=== PATIENT | male | born 1990 | race American Indian/Alaskan Native ===

== ENCOUNTER 2016-11-21 03:01 | Emergency (ER) | payer OTHER ==
--- NOTE | 2016-11-21 08:24 | Emergency Department Report ---
Chief Complaint: Urogenital-Male Stated Complaint: PENILE DISCHARGE Time Seen by Provider: 11/21/16 08:14 - HPI History of Present Illness: 26-year-old male presents today with burning upon urination and white discharge 1 day. Patient states that he had unprotected sex but these occurred once to be tested. Positive for history of gonorrhea and chlamydia and was treated at that time. Denies fever, chills, nausea, vomiting, chest pain, shortness of breath, abdominal Pain, back pain, blood in urine, increased urinary frequency or urgency. - ROS Review of Systems: Per HPI - Exam Vital Signs: Vital Signs 11/21/16 03:25 Temperature 98.4 F Pulse Rate 64 Respiratory 20 Rate Blood Pressure 155/103 O2 Sat by Pulse 100 Oximetry Physical Exam: GENERAL: The patient is well-developed and well-nourished. Patient is in NAD. HEAD: Normocephalic. Atraumatic. CHEST/LUNGS: Clear to auscultation throughout. HEART/CARDIOVASCULAR: Regular rate and rhythm. No murmurs, rubs or gallops. ABDOMEN: Abdomen is soft, nontender. Bowel sounds normoactive. No guarding or rebound tenderness. Negative for CVA tenderness bilaterally. EXTREMITIES: Peripheral pulses intact. Capillary refill less than 2 seconds. NEURO: Alert and oriented x 3. Normal gait. MSE screening note: Focused history and physical exam performed. Due to findings the following was ordered: ED Disposition for MSE Disposition: MEDICAL SCREENING EXAM-LEFT Condition: Stable Referrals: PRIMARY CARE, [Primary Care Provider] - 3-5 Days
[2016-11-21 08:39] VITALS: BP 145/91
--- NOTE | 2016-11-21 08:57 | Emergency Department Report ---
HPI - General Chief Complaint: Urogenital-Male Time Seen by Provider: 11/21/16 08:14 - HPI HPI: 26-year-old male presents today with burning upon urination and white discharge 1 day. Patient states that he had unprotected sex but these occurred once to be tested. Positive for history of gonorrhea and chlamydia and was treated at that time. Denies fever, chills, nausea, vomiting, chest pain, shortness of breath, abdominal Pain, back pain, blood in urine, increased urinary frequency or urgency. ED Past Medical Hx - Past Medical History Previous Medical History?: No - Surgical History Past Surgical History?: Yes Additional Surgical History: LEFT EYE ..."LAZY EYE" - Social History Smoking Status: Never Smoker Substance Use Type: None - Medications Home Medications: Home Medications Medication Instructions Recorded Confirmed Last Taken Type No Known Home Medications [No 11/21/16 11/21/16 Unknown History Reported Home Medications] ED Review of Systems ROS: Stated complaint: PENILE DISCHARGE Other details as noted in HPI Constitutional: denies: chills, fever, malaise Eyes: denies: eye pain ENT: denies: ear pain, throat pain, congestion Respiratory: denies: cough, shortness of breath, wheezing Cardiovascular: denies: chest pain, palpitations Endocrine: no symptoms reported Gastrointestinal: denies: abdominal pain, nausea, vomiting Genitourinary: dysuria, discharge. denies: urgency, frequency, hematuria, testicular pain, testicular mass Musculoskeletal: denies: back pain Neurological: denies: headache, weakness Physical Exam - Physical Exam Vital Signs: Vital Signs 11/21/16 11/21/16 03:25 08:38 Temperature 98.4 F 98.4 F Pulse Rate 64 62 Respiratory 20 14 Rate Blood Pressure 155/103 Blood Pressure 145/91 [Right] O2 Sat by Pulse 100 98 Oximetry Physical Exam: GENERAL: The patient is well-developed and well-nourished. Patient is in NAD. HEAD: Normocephalic. Atraumatic. CHEST/LUNGS: Clear to auscultation throughout. HEART/CARDIOVASCULAR: Regular rate and rhythm. No murmurs, rubs or gallops. ABDOMEN: Abdomen is soft, nontender. Bowel sounds normoactive. No guarding or rebound tenderness. Negative for CVA tenderness bilaterally. EXTREMITIES: Peripheral pulses intact. Capillary refill less than 2 seconds. NEURO: Alert and oriented x 3. Normal gait. ED Course Vital Signs 11/21/16 11/21/16 03:25 08:38 Temperature 98.4 F 98.4 F Pulse Rate 64 62 Respiratory 20 14 Rate Blood Pressure 155/103 Blood Pressure 145/91 [Right] O2 Sat by Pulse 100 98 Oximetry ED Medical Decision Making - Lab Data Vital Signs 11/21/16 11/21/16 03:25 08:38 Temperature 98.4 F 98.4 F Pulse Rate 64 62 Respiratory 20 14 Rate Blood Pressure 155/103 Blood Pressure 145/91 [Right] O2 Sat by Pulse 100 98 Oximetry - Medical Decision Making 26-year-old male presents today with dysuria and penile discharge times one day. His urinalysis revealed elevated white blood cell and moderate leukocyte esterase. Gonorrhea and chlamydia testing has been ordered. Patient has been given azithromycin and ceftriaxone. Patient is in no acute distress at this time. He will be discharged home and is encouraged to follow up with a primary care provider. He is encouraged to return to the emergency room for any worsening symptoms. Critical care attestation.: If time is entered above; I have spent that time in minutes in the direct care of this critically ill patient, excluding procedure time. ED Disposition Clinical Impression: Penile discharge Disposition: DISCHARGED TO HOME OR SELFCARE Is pt being admited?: No Does the pt Need Aspirin: No Condition: Stable Instructions: Gonococcal Urethritis (ED), Chlamydia Infection (ED) Additional Instructions: Follow with primary care provider. Return to the emergency department if symptoms worsen. Referrals: PRIMARY CARE, [Primary Care Provider] - 3-5 Days [facility] [Outside] - 3-5 Days Forms: Work/School Release Form(ED), STI Treatment and Prevention Time of Disposition: 10:10
[2016-11-21 09:48] LABS: Bacteria,Urine 1+ /HPF (Negative); Bilirubin,Urine NEG (Negative); Blood,Urine NEG (Negative); Ketones,Urine NEG (Negative); Leukocyte Esterase,Urine MOD (Negative); Mucus,Urine FEW /HPF; Nitrite,Urine NEG (Negative); Protein,Urine <15 mg/dL mg/dL (Negative); Urobilinogen,Urine < 2.0 mg/dL (<2.0)
[2016-11-21] MEDS ORDERED: ROCEPHIN IM ONE (10:06)
[2016-11-21] MEDS ORDERED: ZITHROMAX PO ONE (10:06)
[2016-11-21] MEDS ORDERED: XYLOCAINE 1% MPF 5 mL INFILTRATI ONE (10:06)
== END 2016-11-21 10:18 | disposition home or self-care (01) ==
LOC: ED 03:01
DX: R36.9 Urethral discharge, unspecified (principal)
CPT/HCPCS: 81001; 96372; 99283; J0696